=== PATIENT | male | born 1945 | race Caucasian/White ===

== ENCOUNTER 2018-01-07 03:22 | Inpatient (IN) | payer OTHER ==
[~2018-01-07] VITALS: Ht 193 cm; Wt 104.8 kg
--- NOTE | 2018-01-07 09:20 | Operative Report ---
Operative/Inv Procedure Report Surgery Date: 01/07/18 Name of Procedure: Left total knee arthroplasty Pre-Operative Diagnosis: Primary osteoarthritis left knee Post-Operative Diagnosis: Same Estimated Blood Loss: less than 50ml Surgeon/Compensation Vice President: Larissa FAIRBANKS,Carlos POON Anesthesia: general endotracheal tube IV Fluids: See anesthesia record Implants: Dasha triathlon posterior stabilized knee size 7 femur, size 7 tibia, 9 mm polyethylene insert, 33 patellar button Drains: None Specimens: Bone to pathology Tourniquet: 48 minutes Complications: None Condition: Stable Operative Indication: Patient is a 72-year-old male with severe osteoarthritis the right knee. He failed conservative treatment and is indicated for total knee arthroplasty. The risks and benefits the procedure were discussed with the patient detailed office and he wished to proceed. Skills that hand is necessary provided by physician project administrative assistant Jose E Oh made with retraction limb positioning and component assembly throughout the case. Operative/Procedure Note Note: Once informed consent was obtained and the correct limb was identified the patient brought to the operating placed on table in supine position. Administration of general endotracheal anesthesia and a nerve block at the patient's left leg had a thigh tourniquet placed and a Wilburn catheter was placed. Left lower exam was prepped and draped in usual sterile fashion. To begin the procedure standard midline incision for total knee arthroscopy is made. Sharp dissection carried out through the skin and subcu tissue. A medial parapatellar arthrotomy was performed and the patella was everted. Fat pad removed and patellar tendon. Patellar thickness was measured to be 26 mm and a plan resection of 10 mm of bone was taken off the patella. The patellar jig was placed and the bony resection was made without complication. The patella was then sized to be size 33 symmetric patella. The jugular 33 patella was placed and the drill holes were made. The patella was retracted laterally and the knee was placed into flexion. The anterior horns of the menisci were resected sharply. Intramedullary canal of the femur was entered with a step drill. In the distal femoral cutting guide was placed. A 6 valgus cut with 10 mm a resection was set and performed without complication. Femur was then sized to be a size 7 femur. A size 7 4-in-1 cutting block was placed on the distal femur and the anterior, posterior, chamfer cuts were made without complication bone was passed off as specimen. A size 7 box cut guide was placed on the femur and the box cut was made for posterior stabilized knee. At this point the remainder of the lateral medial menisci were resected. Osteophytes removed from the posterior femoral condyles with a curved osteotome and curved curettes. Attention was then turned to the tibia. Step drill was then used to enter the tibial canal. The tibial cutting guide was placed and a plan resection of 4 mm of bone off the medial or affected side of the tibia was performed without complication. His bone was passed off as specimen. The tibia was sized to be a size 7 tibia. A trial reduction was done with a size 7 tibia size 7 femur and a 9 mm polyethylene insert. The knee had full extension and was stable to varus and valgus stress at 0 and mid flexion 60. The patella tracked nicely. The knee had flexion of 120. The rotation of the tibial component was marked and the components removed. The tibial tray was then pinned in place at the proper rotation and the keel cut was made. At this point all treatments were removed and the knee was placed in extension and pulse lavage. The cement was mixed on the back table and the components were cemented in place with the tibial component cemented first followed by the femoral component and the patellar button. All excess cement was removed with curettes. A 9 mm polyethylene insert trial was placed in the knee is placed in full extension while the cement hardened. Once the cement hardened the knee was again taken through a full range of motion and found to be stable. A 9 mm polyethylene insert was opened and locked onto the tibial tray. The knee was pulse lavaged and the tourniquet was released. Any bleeding was stopped with electrocautery. The arthro-#1 Vicryl interrupted sutures in the subcutaneous tissues closed with #1 Vicryl and 2-0 Vicryl interrupted sutures. The skin was closed stephanie. Sterile dressings applied and the patient was awakened taken recovery in stable condition.
--- NOTE | 2018-01-07 10:04 | Admission Core Measures ---
Acute Coronary Syndrome (CM) ACS Core Measures Acute Coronary Syndrome Diagnosis No Congestive Heart Failure (NEW) CHF Core Measures Congestive Heart Failure Diagnosis No Cerebrovascular Accident CVA Core Measures CVA/TIA Diagnosis No Venous Thromboembolism VTE Core Aruna (View Protocol) VTE Risk Factors Surgery No Mechanical VTE Prophylaxis d/t N/A MechProphylax Ordered No VTE Pharm Prophylaxis d/t NA PharmProphylax ordered Problem List As ranked by this Provider includes Assessment & Plan 1. Primary osteoarthritis of left knee HOME MEDS Home Med List No Known Home Medications
--- NOTE | 2018-01-07 10:07 | Surgical Discharge Summary ---
Visit Information Visit Dates Admission Date: 01/07/18 Discharge Date: 01/08/18 History of Present Illness Chief Complaint: Left knee pain Surgical History Pertinent Surgical History: knee replacement (B/L TKR) Review of Systems: Refer to H&P Hospital Course Course Attending Physician: Carlos Dias MD Primary Care Physician: Francheska FAIRBANKS,Greg [facility] Course: Patient underwent an elective left total knee arthroplasty on 01/07/[address] Dias. Patient tolerated the procedure well. Postoperatively, he was tolerating a regular diet, voiding spontaneously, pain was well managed with oral medication and he was ambulating with physical therapy using a rolling walker. Patient was cleared for discharge. Allergies: Coded Allergies: Penicillins (UNKNOWN 01/07/18) Significant Procedures: Left total knee arthroplasty Disposition Summary Disposition Principal Diagnosis: Primary osteoarthritis left knee Additional Diagnosis: JUANIS s/p L TKA Discharge Disposition: home health services Discharge Instructions General Discharge Information Code Status: Full Code Patient's Diet: Regular Patient's Activity: WBAT with RW as needed Follow-Up Instructions/Appts: [address] Dias Medications at Discharge Discharge Medications: Start taking the following new medications: Apixaban (Eliquis) 2.5 MG TABLET 2.5 Milligram ORAL TWICE DAILY Qty = 60 No Refills Docusate Sodium (Docusate Sodium) 100 MG CAPSULE 100 Milligram ORAL TWICE DAILY as needed for CONSTIPATION Qty = 20 No Refills Oxycodone HCl/Acetaminophen (Percocet 5-325 MG Tablet) 5 MG-325 MG TABLET 1-2 Tablet ORAL EVERY 4 HOURS NEEDED as needed for PAIN Qty = 36 No Refills
--- NOTE | 2018-01-07 10:10 | Patient Discharge Instructions ---
Discharge Instructions General Discharge Information You were seen/treated for: Osteoarthritis left knee You had these procedures: Left total knee arthroplasty on 01/07/18 Watch for these problems: Fever over 100.4 Drainage from wound Redness and swelling around wound Unable to bear weight on right lower extremity Chest pain or shortness of breath Call Surgeon to remove: Harinder Do not soak the wound: Yes No bath, but you may shower: Yes Other wound care: Keep incision clean and dry Daily dry dressing changes Special Instructions: Take eliquis 2.5 mg twice daily for 4 weeks to prevent blood clots Diet Continue normal diet: Yes Activity Full Activity/No Limits: No Activity Self Limited: Yes Activity Limited to: Weight bear as tolerated (use rolling walker as needed) Acute Coronary Syndrome Inclusion Criteria At DC or during hospital stay patient has or had the following: ACS DIAGNOSIS No Discharge Core Measures Meds if any: Prescribed or Continued at Discharge Meds if any: NOT Prescribed or Continued at Discharge Congestive Heart Failure Inclusion Criteria At DC or during hospital stay patient has or had the following: CHF DIAGNOSIS No Discharge Core Measures Meds if any: Prescribed or Continued at Discharge Meds if any: NOT Prescribed or Continued at Discharge Cerebrovascular accident Inclusion Criteria At DC or during hospital stay patient has or had the following: CVA/TIA Diagnosis No Discharge Core Measures Meds if any: Prescribed or Continued at Discharge Meds if any: NOT Prescribed or Continued at Discharge Venous thromboembolism Inclusion Criteria VTE Diagnosis No VTE Type NONE VTE Confirmed by (Test) NONE Discharge Core Measures - Per Current guidelines, there needs to be overlap - treatment for the first 5 days of Warfarin therapy. - If discharged on Warfarin prior to 5 days of - overlap therapy, the patient will need to be - assessed for post discharge needs including - *Post discharge parental anticoagulation - *Warfarin and/or parental anticoagulation education - *Follow up date to check INR post discharge At least 5 days overlap therapy as Inpatient No Meds if any: Prescribed or Continued at Discharge Note: Overlap Therapy is Warfarin and Anticoagulant Meds if any: NOT Prescribed or Continued at Discharge
[2018-01-07 12:00] VITALS: BP 135/70
--- NOTE | 2018-01-07 13:55 | PN- Orthopedic ---
Subjective Subjective: POST-OP NOTE No complaints. Reports pain controlled currently. Interested in getting out of bed. Tolerating diet. No nausea. Denies dizziness. No shortness of breath. No chest pains. Objective Vital Signs and I&Os Intake & Output 01/07 1600 01/07 0800 01/07 0000 01/06 1600 01/06 0800 01/06 0000 Intake Total Output Total Balance Patient 231 lb Weight Weight Reported by Patient Measurement Method pacu flowsheet reviewed, vss, u/o adequate Physical Exam: General - alert & oriented x 3. comfortable. no acute distress. Lungs - clear bilaterally. no w/r/r. Cardiac - s1s2. reg. Abdomen - soft. nontender. - elder draining clear, yellow urine. Extremities - warm bilaterally. left knee dressing c/d/i. ice over knee. no drains. nvi. calves soft and nontender b/l. Current Medications: Current Medications Sig/Samara Start time Last Medication Dose Route Stop Time Status Admin Acetaminophen 0 .STK-MED ONE 01/08 720 DC PO Acetaminophen 650 MG ONCE 01/07 DC PO 01/07 2359 Apixaban 2.5 MG BID 01/08 900 AC PO Celecoxib 400 MG DAILY 01/08 09 AC PO Celecoxib 400 MG ONCE 01/07 0000 DC PO 01/07 235 Dexamethasone 0 .STK-MED ONE 01/07 721 DC .ROUTE Dexamethasone 10 MG ONCE 01/07 DC IV 01/07 235 Dextrose/Lactated 1,000 ML Q13H 01/07 1130 AC 01/07 Ringer's IV 1151 Docusate Sodium 100 MG BID PRN 01/07 0930 AC PO Fentanyl Citrate 0 .STK-MED ONE 01/08 732 DC .ROUTE Fentanyl Citrate 0 .STK-MED ONE 01/07 721 DC .ROUTE Gabapentin 0 .STK-MED ONE 01/07 717 DC PO Gabapentin 300 MG ONCE 01/07 0000 DC PO 01/07 235 Hydromorphone HCl 0 .STK-MED ONE 01/08 732 DC .ROUTE Midazolam HCl 0 .STK-MED ONE 01/08 932 DC .ROUTE Midazolam HCl 0 .STK-MED ONE 01/07 722 DC .ROUTE Morphine Sulfate 2 MG Q3P PRN 01/07 1130 AC IV Morphine Sulfate 0 .STK-MED ONE 01/07 722 DC .ROUTE Nicotine 14 MG DAILY 01/08 0900 AC TOP Ondansetron HCl 4 MG Q6P PRN 01/07 1130 AC IV Oxycodone HCl 0 .STK-MED ONE 01/07 07 DC PO Oxycodone HCl 10 MG ONCE 01/07 0000 DC PO 01/07 235 Oxycodone/ 1 TAB Q4P PRN 01/07 1130 AC Acetaminophen PO Oxycodone/ 2 TAB Q4P PRN 01/07 1130 AC Acetaminophen PO Polyethylene Glycol 17 GM DAILY PRN 01/07 0930 AC PO Scopolamine HBr 0 .STK-MED ONE 01/07 722 DC TOP Scopolamine HBr 1 PAT ONCE 01/07 0000 DC TOP 01/07 235 Senna/Docusate Sodium 2 TAB AT BEDTIME NEED.. 01/07 1130 AC PO Tranexamic Acid 0 .STK-MED ONE 01/07 722 DC IV Vancomycin HCl 1,500 MG ONCE ONE 01/07 1900 AC Sodium Chloride 250 ML IV 01/07 2029 Vancomycin HCl 1,500 MG ONCE 01/07 0000 DC Sodium Chloride 250 ML IV 01/07 235 Assessment/Plan Assessment/Plan This 72 year old male with hx smoking is POD#0 s/p L TKR for primary osteoarthritis left knee advance diet as tolerated pain control as ordered PT eval, to see him today eliquis - dvt ppx vanco x 1 simran-operatively nicotine patch ordered bowel regime in place f/u AM labs d/c elder in AM will d/w Core Measures Venous Thromboembolism VTE Risk Factors Surgery No Mechanical VTE Prophylaxis d/t N/A MechProphylax Ordered No VTE Pharm Prophylaxis d/t NA PharmProphylax ordered
[2018-01-07 14:30] VITALS: BP 132/78
[2018-01-07 16:26] VITALS: BP 124/70
[2018-01-07 18:30] VITALS: BP 140/80
[2018-01-07 20:30] VITALS: BP 124/80
[2018-01-08 00:30] VITALS: BP 120/80
[2018-01-08 04:00] VITALS: BP 120/70
--- NOTE | 2018-01-08 07:19 | PN- Orthopedic ---
Subjective Subjective: Reports minor knee discomfort, but denies significant pain. Did not use pain meds. States he ambulated yesterday [facility]. Objective Vital Signs and I&Os Vital Signs Date Time Temp Pulse Resp B/P B/P Pulse O2 O2 Flow FiO2 Mean Ox Delivery Rate 01/08 0400 98.4 82 20 120/70 92 Room Air 01/08 0030 97.9 73 20 120/80 95 Room Air 01/07 2030 97.9 78 20 124/80 93 Room Air 01/07 1830 98.3 81 19 140/80 97 Room Air 01/07 1626 98.3 75 19 124/70 94 Room Air 01/07 1430 98.8 74 18 132/78 95 Room Air 01/07 1200 97.6 65 16 135/70 94 Intake & Output 01/08 0800 01/08 0000 01/07 1600 01/07 0800 01/07 0000 01/06 1600 Intake Total 840 1300 1250 Output Total 1700 900 Balance 840 -400 350 Intake, IV 600 600 400 Intake, Oral 240 700 850 Output, Urine 1700 900 Patient 231 lb Weight Weight Reported by Patient Measurement Method Alert, oriented, appropriate, no distress HEENT unremarkable Lungs clear bilat. Heart , normal rate Abdomen benign LLE with bandage on,clean, dry. Neurovascular intact. Calf supple, no tenderness. Assessment/Plan Assessment/Plan 72 y o male withg s/p LTKA for primary DJD POD#1 Stable hemodynamics Progressing as expected. On Eliquis for anticoagulation. No signs of bleeding. Will follow labs today. Tolerating diet, will hep lock IVF. Urine dark yellow, good output over 24 hrs. Will d/c Wilburn Cont. PT/ mobilization Core Measures Venous Thromboembolism VTE Risk Factors Surgery No Mechanical VTE Prophylaxis d/t N/A MechProphylax Ordered No VTE Pharm Prophylaxis d/t NA PharmProphylax ordered
[2018-01-08 07:57] VITALS: BP 140/70
[2018-01-08 09:29] LABS: ABSOLUTE BASOPHIL COUNT 0 /CUMM (0.0-0.2); ABSOLUTE EOSINOPHIL COUNT 0 /CUMM (0.0-0.7); ABSOLUTE GRANULOCYTE CT 7.7 /CUMM (1.4-6.5); ABSOLUTE LYMPH COUNT 1.6 /CUMM (1.2-3.4); BASOPHIL % 0.3 % (0.0-2.0); EOSINOPHIL % 0.2 % (0-5); GRANULOCYTE % 74.1 % (42.2-75.2); HEMATOCRIT 40.8 % (42-52); MEAN CORPUSCULAR HGB 31.1 PG (27.0-31.0); MEAN CORPUSCULAR HGB CONC 34.5 G/DL (33.0-37.0); MEAN CORPUSCULAR VOLUME 90.3 FL (80.0-94.0); MEAN PLATELET VOLUME 8.2 FL (7.4-10.4); PLATELET COUNT 256 /CUMM (130-400); RED BLOOD CELL CT 4.52 /CUMM (4.70-6.10); WHITE BLOOD CELL COUNT 10.3 /CUMM (4.8-10.8)
[2018-01-08] MEDS ORDERED: PERCOCET 5-3251 EACH PO (11:02)
[2018-01-08] MEDS ORDERED: ELIQUIS2.5 M1 PO (11:02)
[2018-01-08] MEDS ORDERED: DOCUSATE SODIU100 M3 PO (11:02)
== END 2018-01-08 12:53 | disposition home health service (06) | DRG 470 ==
LOC: SDA 03:22 → 2NA 03:22 → ENRESERV 10:05 → ENTRNSPT 10:25 → EDTRNSPT 10:31 → EDTRNSPTSTS 10:31 → 2NA 10:40 → CMPTRNSPT 11:21 → ENPENDDIS 01-08 11:37 → ENTRNSPT 01-08 12:08 → 2NA 01-08 12:53 → CMPTRNSPT 01-08 12:55
PROVIDERS: Physician Assistant Surgical
PROC: 3E0T3BZ Introduction of Anesthetic Agent into Peripheral Nerves and Plexi, Percutaneous Approach (ICD-10-PCS; principal; 2018-01-07)
PROC: 0SRD0J9 Replacement of Left Knee Joint with Synthetic Substitute, Cemented, Open Approach (ICD-10-PCS; principal; 2018-01-07)
DX: M17.12 Unilateral primary osteoarthritis, left knee (principal); F17.210 Nicotine dependence, cigarettes, uncomplicated; Z88.0 Allergy status to penicillin
CPT/HCPCS: 2NAP; 36415; 82436; 87086; 97110-GO; 97116-GO; 97161-GP; 97530-GO; C1713; J1100; J2405; J3370; J3490; J7040